=== PATIENT | male | born 1985 | race Caucasian/White ===

== ENCOUNTER → 2019-01-17 11:14 | Outpatient (CLI) | payer SELFPAY ==
[2019-01-17 11:39] LABS: Color,Urine Dark Yellow (Yellow)
[2019-01-17 11:40] LABS: Apearance,Urine Clear (Clear); Bilirubin,Urine Negative (Negative); Blood, Urine Negative (Negative); Glucose,Urine (UA) Negative (Negative); Ketones,Urine Negative (Negative); PH,Urine 5.5 (5.0-8.5); Protein,Urine Negative (Negative); UTC Leukocyte Esterase,Urine Negative (Negative); UTC Nitrate,Urine Negative (Negative); Urobilinogen,Urine 0.2 EU/dl (0.2)
== END ==
PROVIDERS: PCP Internal Medicine Adolescent Medicine; Visit Provider Nurse Practitioner Family
DX: Z02.4 Encounter for examination for driving license (principal)
CPT/HCPCS: 81003